=== PATIENT | female | born 2000 | race Hispanic/Latino ===

== ENCOUNTER 2023-10-10 09:32 | Emergency (ER) | payer OTHER, SELFPAY ==
[~2023-10-10] VITALS: Ht 154.9 cm; Wt 56.0 kg
[2023-10-10 10:51] LABS: HEMATOCRIT 45.1 % (36.0-47.0); HEMOGLOBIN 14.9 g/dl (12.0-15.5); MEAN CORPUSCULAR HEMOGLOBIN 29.7 pg (27.0-33.0); PLATELET COUNT, AUTOMATED 215 10^3/uL (150-450); RED BLOOD COUNT 5.01 10^6/uL (4.00-5.40); WHITE BLOOD COUNT 11.7 10^3/uL (4.0-10.0)
[2023-10-10 10:56] LABS: BLOOD UREA NITROGEN 11 MG/DL (9-23); CALCIUM LEVEL 9.1 MG/DL (8.5-10.1); CARBON DIOXIDE LEVEL 27 MMOL/L (20-31); CHLORIDE LEVEL 105 MMOL/L (98-107); CREATININE FOR GFR 0.68 MG/DL (0.55-1.30); GLOMERULAR FILTRATION RATE > 60.0 (>60); GLUCOSE, FASTING 87 MG/DL (60-100); POTASSIUM SERUM 4.1 MMOL/L (3.5-5.1); SODIUM LEVEL 139 MMOL/L (136-145)
[2023-10-10 11:03] LABS: HCG, SERUM QUALITATIVE NEGATIVE (NEGATIVE)
[2023-10-10 11:13] LABS: ATYPICAL LYMPH 41 % (0-5); BASOPHILS 1 % (0-1); LYMPHOCYTES 28 % (16-44); MONOCYTES 14 % (0-5); NEUTROPHILS 16 % (28-66); PLATELET ESTIMATE NORMAL (NORMAL); TOXIC VACUOLATION 1+
[2023-10-10 11:14] LABS: ANISOCYTOSIS 1+; TEAR DROP CELLS 1+
[2023-10-10] MEDS ORDERED: AMPICILLIN SOD/SULBACTAM SOD 3 GM in D5W MINI-BAG PLUS 100 ML IV ONE (11:50)
[2023-10-10] MEDS ORDERED: KETOROLAC 30 MG/ML 1ML VIAL IV ONE (11:50)
[2023-10-10] MEDS ORDERED: NS 1,000 ML IV ONE (11:50)
[2023-10-10] MEDS ORDERED: ISOVUE-370 76% 100ML VIAL As Ordered ONE (11:51)
[2023-10-10 11:59] LABS: MONO SCRN POSITIVE (NEGATIVE)
[2023-10-10] MEDS ORDERED: AMOX875T2 PO (13:06)
[2023-10-10] MEDS ORDERED: IBUP-1022 PO (13:06)
[2023-10-10 13:24] VITALS: BP 124/78; TEMP 97.5; O2SAT 100
== END 2023-10-10 13:24 | disposition home or self-care (01) ==
LOC: M ED 09:32
DX: K11.21 Acute sialoadenitis (principal)
CPT/HCPCS: 70491; 80048; 84703; 85025; 86308; 87040; 96365; 96372; 99284; J0295; J1885; Q9967